=== PATIENT | female | born 1945 | race Two or more races ===

== ENCOUNTER 2018-09-12 08:58 | Day surgery (SDC) | payer MEDICARE, OTHER ==
[~2018-09-12 08:58] MED LIST: Lactated Ringers 1,000 ML IV SCH; Sodium Chloride 0.9% 10 ML Syringe FLUSH PRN
[2018-09-12] MEDS ORDERED: fentaNYL 100 MCG/2 ML SDV ONE (10:50)
[2018-09-12] MEDS ORDERED: Propofol 200 MG/20 ML SDV ONE (10:50)
--- NOTE | 2018-09-12 17:11 | OR ---
PREOPERATIVE DIAGNOSIS: Screening colonoscopy. POSTOPERATIVE DIAGNOSIS: Screening colonoscopy. PROCEDURE PERFORMED: Colonoscopy with polypectomy. INDICATION: The patient is a 73-year-old female, who presents for screening colonoscopy at this time. PROCEDURE IN DETAIL: This was done in the endoscopy suite. Sedation was given per Anesthesia. She was placed in the left lateral position. First, a rectal exam was done, it was normal. Scope was introduced in the rectum and slowly advanced to the rectum, sigmoid, descending, transverse, and ascending colon until the cecum was reached. Upon reaching the cecum, scope was slowly withdrawn looking at all the mucosal surface on the way out. No mucosal abnormalities, lesions, or polyps were noted until approximately 20 cm inside the rectum, where a small polyp was found, removed by hot loop forceps and sent to pathology. The remainder of the exam was normal. FINAL DIAGNOSIS: Polyp at 20 cm. BKD: 09/12/2018 11:38:17 MODL: 09/12/2018 17:06:37 /[id number]
== END 2018-09-12 12:43 | disposition home or self-care (01) ==
LOC: VM.SDS 08:58
PROVIDERS: ATTEND Surgery
DX: Z12.11 Encounter for screening for malignant neoplasm of colon (principal); D12.8 Benign neoplasm of rectum; I10 Essential (primary) hypertension; E78.5 Hyperlipidemia, unspecified; M19.90 Unspecified osteoarthritis, unspecified site; N32.81 Overactive bladder; E11.9 Type 2 diabetes mellitus without complications; M81.0 Age-related osteoporosis without current pathological fracture; Z79.84 Long term (current) use of oral hypoglycemic drugs; Z87.891 Personal history of nicotine dependence; Z79.82 Long term (current) use of aspirin; Z88.5 Allergy status to narcotic agent; Z91.011 Allergy to milk products
CPT/HCPCS: 00811; 45384; 82962; J2704; J3010; J7120

== ENCOUNTER 2024-06-04 11:22 | Emergency (ER) | payer MEDICARE, OTHER ==
[2024-06-04 11:41] LABS: BASOPHILS PERCENT AUTO 0.1 % (0.2-1.2); EOSINOPHILS ABSOLUTE AUTO 0.2 x10^3/uL (0.0-0.5); HEMATOCRIT 37.2 % (33.0-47.0); IMMATURE GRAN ABSOLUTE AUTO 0.01 x10^3/uL (0.00-0.07); LYMPHOCYTES ABSOLUTE AUTO 2.7 x10^3/uL (1.0-4.8); LYMPHOCYTES PERCENT AUTO 26.2 % (25.0-50.0); MEAN CORPUSCULAR HEMOGLOBIN 28.2 pg (26.0-32.0); MEAN CORPUSCULAR HGB CONC 32.3 g/dL (32.0-36.0); MEAN CORPUSCULAR VOLUME 87.5 fL (78.0-93.0); MONOCYTES ABSOLUTE AUTO 0.6 x10^3/uL (0.0-0.8); NEUTROPHILS ABSOLUTE AUTO 6.7 x10^3/uL (1.8-7.7); NEUTROPHILS PERCENT AUTO 65.6 % (50.0-80.0); PLATELET COUNT,PLT 181 x10^3/uL (130-400); RED BLOOD CELL COUNT 4.25 x10^6/uL (4.00-5.50); WHITE BLOOD CELL COUNT,WBC 10.3 x10^3/uL (4.0-10.0)
[2024-06-04 11:52] LABS: PROTHROMBIN TIME 10.9 SEC (9.6-12.0)
[2024-06-04 11:58] LABS: A/G RATIO 0.85; ALANINE AMINOTRANSFERASE,ALT 21 U/L (14-59); ALBUMIN 3.4 g/dL (3.4-5.0); ALKALINE PHOSPHATASE 93 U/L (46-116); ANION GAP 12.3 mmol/L (5-15); ASPARTATE AMNIOTRANSFERASE,AST 22 U/L (15-37); BILIRUBIN TOTAL 0.6 mg/dL (0.2-1.0); BLOOD UREA NITROGEN,BUN 17 mg/dL (7-18); CALCIUM 8.7 mg/dL (8.5-10.1); CARBON DIOXIDE,CO2 30 mmol/L (21-32); CHLORIDE,CL 102 mmol/L (98-107); ESTIMATED GFR 57 mL/min (>=60); GLUCOSE RANDOM 155 mg/dL (70-99); POTASSIUM,K 3.3 mmol/L (3.5-5.1); PROTEIN TOTAL,TP 7.4 g/dL (6.4-8.2); SODIUM,NA 141 mmol/L (136-145)
[2024-06-04] MEDS: Ondansetron 4 MG/2 ML SDV IVPUSH ONE (12:38)
[2024-06-04] MEDS: HYDROmorphone 0.5 MG/0.5 ML Syringe IVPUSH PRN (12:40)
[2024-06-04 13:50] LABS: CREATINE KINASE,CK 47 U/L (26-192)
== END 2024-06-04 16:06 | disposition short-term general hospital (02) ==
LOC: VM.ED 11:22
DX: S72.21XA Displaced subtrochanteric fracture of right femur, initial encounter for closed fracture (principal); I10 Essential (primary) hypertension; E78.00 Pure hypercholesterolemia, unspecified; E11.9 Type 2 diabetes mellitus without complications; Z90.49 Acquired absence of other specified parts of digestive tract; Z88.5 Allergy status to narcotic agent; Z91.011 Allergy to milk products; Z79.82 Long term (current) use of aspirin; Z79.899 Other long term (current) drug therapy; Z79.84 Long term (current) use of oral hypoglycemic drugs; W18.39XA Other fall on same level, initial encounter; Y92.009 Unspecified place in unspecified non-institutional (private) residence as the place of occurrence of the external cause; Y93.89 Activity, other specified
CPT/HCPCS: 36415; 51702; 80053; 82550; 84484; 85025; 85610; 96374; 96375; 96376; 99285-25; J2405